=== PATIENT | male | born 1950 | race Caucasian/White ===

== ENCOUNTER 2018-05-28 18:15 | Emergency (ER) | payer MEDICARE, OTHER ==
[~2018-05-28] VITALS: Ht 167.6 cm; Wt 65.9 kg
[~2018-05-28 18:15] MED LIST: ASPIRIN E.C. 8181 MG PO; CEPHALEXIN500 M1 PO; METROGEL GEL45 GM TP; MICARDIS HCT 121 TAB PO; MULTIPLE VITAMI1 CAP PO; NITROSTAT0.4 MG/TAB SL; ZOCOR 20MG20 MG PO
[2018-05-28 18:20] VITALS: BP 145/90; TEMP 98.8
[2018-05-28] MEDS ORDERED: PREDNISONE20 MG PO (19:35)
[2018-05-28 20:17] VITALS: PULSE 71
== END 2018-05-28 20:17 | disposition home or self-care (01) ==
LOC: COL.ER 18:15
DX: M54.16 Radiculopathy, lumbar region (principal); E78.5 Hyperlipidemia, unspecified; I10 Essential (primary) hypertension; Z79.52 Long term (current) use of systemic steroids; Z95.0 Presence of cardiac pacemaker; Z79.82 Long term (current) use of aspirin
CPT/HCPCS: J7512